=== PATIENT | female | born 1950 | race American Indian/Alaskan Native ===

== ENCOUNTER 2018-04-06 08:11 | Day surgery (SDC) | payer MEDICARE, MEDICAID ==
[2018-04-06] MEDS ORDERED: Iohexol 240 (50 ml) ONE (09:02)
[2018-04-06] MEDS ORDERED: Lidocaine 2% Jelly (Uro-Jet) ONE (09:02)
[2018-04-06] MEDS ORDERED: cefTRIAXone 1 gm 0 GM/0 ML BAG IVPB ONE (09:02)
[2018-04-06] MEDS ORDERED: Ciprofloxacin 400mg/200ml D5W 400 MG/200 ML BAG IVPB ONE (09:58)
[2018-04-06] MEDS ORDERED: Propofol 10 mg/ml Inj (20 ML) ONE ×2 (10:02→10:42)
[2018-04-06] MEDS ORDERED: Etomidate 20 mg/10ml Inj IV ONE (10:03)
[2018-04-06] MEDS ORDERED: Phenylephrine 10 mg/ml Inj ONE (10:51)
[2018-04-06] MEDS ORDERED: Labetalol 25mg/5ml Syringe ONE (10:51)
[2018-04-06 11:27] VITALS: TEMP 97.5
[2018-04-06] MEDS ORDERED: HYDROmorphone 0.5 mg/0.5 ml ISec IVP PRN (11:32)
[2018-04-06] MEDS: HYDROmorphone 0.5 mg/0.5 ml ISec IVP PRN ×2 (11:44→11:54)
[2018-04-06] MEDS ORDERED: Acetaminophen-Codeine 300/30 mg Tab PO STA (12:42)
[2018-04-06 12:54] VITALS: BP 122/68; PULSE 78; RESP 16; O2SAT 98
[2018-04-06] MEDS ORDERED: Oxycodone/Acetaminophen 5/325 mg Tab PO ONE (13:00)
--- NOTE | 2018-04-06 16:35 | RAD ---
Date of service: 04/06/2018 HISTORY: HEMATURIA COMPARISON: No prior. FINDINGS: BOWEL: Constipation without fecal impaction or obstruction. BONES: Normal. OTHER FINDINGS: Contrast identified in the urinary bladder, right ureter and collecting system. Contrast identified in the distal left ureter Vascular catheter also identified. Calcified fibroids identified. IMPRESSION: Additional benign and/or incidental findings described above.
--- NOTE | 2018-04-06 22:49 | OP ---
PROCEDURE DATE: 04/06/2018 PREOPERATIVE DIAGNOSIS: Gross hematuria. POSTOPERATIVE DIAGNOSES: Gross hematuria plus hemorrhagic cystitis. PROCEDURES: Cystoscopy, fulguration of arterial bleeding site and other bleeding sites, and right retrograde pyelogram. SPECIMEN: Urine sent for culture and sensitivity and bladder washing for cytology. SURGEON: Jaswinder Zhang MD ANESTHESIA: IV sedation. 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 Next, under adequate IV sedation, a #22-[place] cystoscope was inserted into the bladder. The bladder was examined in all four quadrants. There was gross bleeding seen from multiple areas of the bladder, and one arterial bleeder was seen on the posterior wall towards the dome. This was fulgurated with the coagulating current set at 30 negrete. Next, using a #8-[place] catheter, a right retrograde was performed using contrast material, and this showed a normal right ureter with no filling defects and no dilatation. There was some clubbing of the right collecting system. An attempt to do a left retrograde pyelogram made with difficulty with visualization of the left ureteral orifice and for this, the procedure was not done at this time. At the end of the procedure, the bladder was thoroughly irrigated with normal saline with a very light pink tinged urine. The patient tolerated the procedure well with about 50 mL of blood loss and was brought to recovery area in satisfactory condition. The patient was given Cipro IV during the procedure. The patient is allergic to penicillin and sulfa. The patient will be discharged to home Cipro 250 mg daily for 10 days. The patient will be seen in office followup in about two weeks. Jaswinder Zhang MD
== END 2018-04-06 15:01 | disposition home or self-care (01) ==
LOC: C.SDS 08:11
PROVIDERS: ATTEND Urology
DX: N30.91 Cystitis, unspecified with hematuria (principal); N93.9 Abnormal uterine and vaginal bleeding, unspecified; I25.9 Chronic ischemic heart disease, unspecified; I12.0 Hypertensive chronic kidney disease with stage 5 chronic kidney disease or end stage renal disease; N18.6 End stage renal disease; Z99.2 Dependence on renal dialysis; Z95.828 Presence of other vascular implants and grafts; Z21 Asymptomatic human immunodeficiency virus [HIV] infection status; E78.5 Hyperlipidemia, unspecified; D64.9 Anemia, unspecified; F41.9 Anxiety disorder, unspecified; F33.9 Major depressive disorder, recurrent, unspecified; Z86.73 Personal history of transient ischemic attack (TIA), and cerebral infarction without residual deficits; Z86.19 Personal history of other infectious and parasitic diseases; Z79.82 Long term (current) use of aspirin; Z79.02 Long term (current) use of antithrombotics/antiplatelets; Z79.899 Other long term (current) drug therapy; Z88.0 Allergy status to penicillin; Z88.2 Allergy status to sulfonamides; Z88.5 Allergy status to narcotic agent